=== PATIENT | female | born 2005 | race African-American/Black ===

== ENCOUNTER 2025-05-14 14:44 | Emergency (ER) | payer SELFPAY ==
[2025-05-14] MEDS ORDERED: predniSONE 20 MG TAB ONE (15:55)
== END 2025-05-14 16:45 | disposition home or self-care (01) ==
LOC: CSHERS 14:44
DX: J45.901 Unspecified asthma with (acute) exacerbation (principal)
CPT/HCPCS: 93005; 94640; 94760; J7512